=== PATIENT | male | born 1985 | race Caucasian/White ===

== ENCOUNTER 2019-05-25 20:41 | Emergency (ER) | payer OTHER ==
[2019-05-25] MEDS ORDERED: DIAZEPAM 5 MG/ML 2 ML INJ IVP STA (20:46)
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
[2019-05-25 21:01] LABS: Glucose,Whole Blood 121 mg/dL (75-99)
[2019-05-25 21:12] LABS: Basophils # (A) 0.1 k/uL (0-0.2); Basophils % (A) 1 %; Eosinophils # (A) 0.2 k/uL (0-0.7); Eosinophils % (A) 1 %; HCT 40.9 % (39.0-53.0); Lymphocytes # (A) 3.4 k/uL (1.0-4.8); Lymphocytes % (A) 33 %; MCH 31.6 pg (25.0-35.0); MCHC 34.3 g/dL (31.0-37.0); MCV 92.2 fL (80.0-100.0); Monocytes # (A) 0.6 k/uL (0-1.0); Monocytes % (A) 5 %; Neutrophils # (A) 5.8 k/uL (1.3-7.7); Neutrophils % (A) 56 %; Platelet Count 209 k/uL (150-450); RBC 4.43 m/uL (4.30-5.90); RDW 12.8 % (11.5-15.5); WBC 10.4 k/uL (3.8-10.6)
[2019-05-25 21:21] LABS: ALT 19 U/L (21-72); AST 22 U/L (17-59); African American GFR (CKD) >90 (>60 ml/min/1.73 sqM); Albumin 4.3 g/dL (3.5-5.0); Alcohol 63 mg/dL; Alkaline Phosphatase 47 U/L (38-126); Amylase 58 U/L (30-110); Anion Gap 13 mmol/L; Blood Urea Nitrogen 11 mg/dL (9-20); Calcium 9.1 mg/dL (8.4-10.2); Carbon Dioxide 22 mmol/L (22-30); Chloride 105 mmol/L (98-107); Glucose 126 mg/dL (74-99); Potassium 3.9 mmol/L (3.5-5.1); Sodium 140 mmol/L (137-145); Total Bilirubin 0.4 mg/dL (0.2-1.3); Total Protein 6.9 g/dL (6.3-8.2)
[2019-05-25 21:28] LABS: Prothrombin Time 10.9 sec (9.0-12.0)
[2019-05-25 21:29] LABS: Partial Thromboplastin Time 22.4 sec (22.0-30.0)
[2019-05-25 21:30] LABS: Creatine Kinase 142 U/L (55-170)
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
[2019-05-25 21:42] LABS: Creatine Kinase MB 1.2 ng/mL (0.0-2.4); Troponin I <0.012 ng/mL (0.000-0.034)
[2019-05-25 21:46] LABS: Appearance,Urine Clear (Clear); Bilirubin,Urine Negative (Negative); Blood,Urine Negative (Negative); Color,Urine Colorless; Glucose,Urine (UA) Negative (Negative); Ketones,Urine Negative (Negative); Leukocyte Esterase,Urine Negative (Negative); Nitrite,Urine Negative (Negative); Protein,Urine Negative (Negative); Specific Gravity,Urine 1.012 (1.001-1.035); Urobilinogen,Urine <2.0 mg/dL (<2.0)
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
[2019-05-25 21:58] LABS: Amphetamine Screen,Urine Not Detected (NotDetected); Barbiturate Screen,Urine Not Detected (NotDetected); Benzodiazepines Screen,Urine Not Detected (NotDetected); Cocaine Screen,Urine Not Detected (NotDetected); Methadone Screen, Urine Not Detected (NotDetected); Opiate Screen,Urine Not Detected (NotDetected); Oxycodone Screen, Urine Not Detected (NotDetected); Phencyclidine Screen,Urine Not Detected (NotDetected); Tricyclic Antidepressant,Urine Not Detected (NotDetected); Urn Cannabinoid Scrn Detected (NotDetected)
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
[2019-05-25] MEDS ORDERED: MORPHINE SULFATE 4 MG/ML SYRINGE IVP STA (23:12)
[2019-05-25 23:33] VITALS: BP 111/58; PULSE 83; RESP 20; TEMP 98.8
== END 2019-05-25 23:12 | disposition other institution (70) ==
LOC: EC 20:41
DX: S06.6X9A Traumatic subarachnoid hemorrhage with loss of consciousness of unspecified duration, initial encounter (principal); S32.301A Unspecified fracture of right ilium, initial encounter for closed fracture; M25.572 Pain in left ankle and joints of left foot; V02.99XA Pedestrian with other conveyance injured in collision with two- or three-wheeled motor vehicle, unspecified whether traffic or nontraffic accident, initial encounter; Y92.410 Unspecified street and highway as the place of occurrence of the external cause; Y93.89 Activity, other specified
CPT/HCPCS: 36415; 86900; 86901; 80053; 82150; 82550; 82553; 83605; 83690; 84484; 85025; 85610; 85730; 86850; 81003; 80306; 80320; 72170; 71045; 72125; 70486; 70450; 71260; 74177; 96374; 99291; J3360; Q9967

== ENCOUNTER → 2019-08-09 | Outpatient (CLI) | payer OTHER ==
--- NOTE | 2019-08-09 13:54 | CT ---
EXAMINATION TYPE: CT brain wo con DATE OF EXAM: 08/09/2019 COMPARISON: CT brain May 25, 2019 HISTORY: Follow up subarachnoid hemorrhage. CT DLP: 966.9 mGycm. Automated Exposure Control for Dose Reduction was Utilized. TECHNIQUE: CT scan of the head is performed without contrast. FINDINGS: There is no acute intracranial hemorrhage, mass effect, or midline shift identified on cu rrent study. Interval resolution of left frontal subarachnoid hemorrhage prior study axial image 21. The ventricles and sulci are within normal limits in size. The globes are intact bilaterally patchy opacification and mucosal thickening left ethmoid and sphenoid sinus is now present. IMPRESSION: No acute intracranial hemorrhage or midline shift is seen currently.
== END | disposition home or self-care (01) ==
LOC: RADCTMAIN 13:24
PROVIDERS: ATTEND Neurological Surgery
DX: S06.6X9D Traumatic subarachnoid hemorrhage with loss of consciousness of unspecified duration, subsequent encounter (principal)
CPT/HCPCS: 70450